=== PATIENT | male | born 1995 | race African-American/Black ===

== ENCOUNTER 2017-11-21 20:39 | Emergency (ER) | payer SELFPAY ==
[~2017-11-21] VITALS: Ht 188 cm; Wt 104.0 kg
[2017-11-22] MEDS ORDERED: MOTRIN600 MG PO (00:07)
[2017-11-22] MEDS ORDERED: KEFLEX500 MG PO (00:07)
[2017-11-22] MEDS ORDERED: TRAMADOL HCL50 MG PO (00:07)
[2017-11-22 00:24] VITALS: BP 156/84
== END 2017-11-22 00:24 | disposition home or self-care (01) ==
LOC: EME 20:39
PROC: 0H99XZZ Drainage of Perineum Skin, External Approach (ICD-10-PCS; principal; 2017-11-21)
DX: L02.215 Cutaneous abscess of perineum (principal); R51 Headache; J02.9 Acute pharyngitis, unspecified
CPT/HCPCS: 76882; 87205; 99281; 99285

== ENCOUNTER 2017-11-24 21:58 | Emergency (ER) | payer SELFPAY ==
[~2017-11-24] VITALS: Ht 188 cm; Wt 105.4 kg
[~2017-11-24 21:58] MED LIST: KEFLEX500 MG PO; MOTRIN600 MG PO; TRAMADOL HCL50 MG PO
[2017-11-25 00:16] VITALS: BP 127/74
== END 2017-11-25 00:17 | disposition home or self-care (01) ==
LOC: EME 21:58
DX: L02.215 Cutaneous abscess of perineum (principal); R11.0 Nausea
CPT/HCPCS: 99281; 99284